=== PATIENT | male | born 1960 | race Caucasian/White ===

== ENCOUNTER → 2017-11-04 14:16 | Outpatient (CLI) | payer MEDICAID, SELFPAY ==
--- NOTE | 2017-11-04 14:20 | XR_ITS ---
EXAM: XR lumbar spine min 4V HISTORY: ITS.REASON: Low back pain ORDERING PHYSICIAN: TAVO Young PATIENT AGE: 57 years COMPARISON: None FINDINGS: Normal alignment. No acute fracture or dislocation. There is severe degenerative disc disease at L5-S1 with mild anterolisthesis of L5 of approximately 5 mm. No lytic or blastic change. IMPRESSION: Severe degenerative disc disease L5-S1
== END ==
PROVIDERS: PCP Physician Assistant; Visit Provider Physician Assistant
DX: M54.5 Low back pain (principal)
CPT/HCPCS: 72110

== ENCOUNTER 2017-12-09 09:30 | Outpatient (RCR) | payer MEDICAID, SELFPAY | END 2017-12-09 14:03 | disposition home or self-care (01) | LOC: PT 09:30 | PROVIDERS: Family Provider Internal Medicine Adolescent Medicine; PCP Physician Assistant; Visit Provider Physician Assistant | DX: M51.16 Intervertebral disc disorders with radiculopathy, lumbar region (principal) | CPT/HCPCS: 97010; 97014; 97110; 97163; G0283 ==

== ENCOUNTER → 2019-01-07 14:15 | Outpatient (CLI) | payer MEDICAID, SELFPAY ==
[2019-01-07 14:35] LABS: Basophils % 0.4 % (0.1-2.0); Eosinophils # 0.1 K/mm3 (0.0-0.4); Eosinophils % 1.4 % (0.1-12.0); Hematocrit 40.8 % (42.0-52.0); Hemoglobin 12.8 g/dL (14.1-18.0); Lymphocytes # 1.8 K/mm3 (0.7-4.5); Lymphocytes % 25.6 % (10-50); Mean Corpuscular HGB Conc 31.3 g/dL (31.8-35.4); Mean Corpuscular Hemoglobin 28.6 pg (27.0-31.2); Mean Corpuscular Volume 91.5 fl (80-94); Mean Platelet Volume 8.9 fl (7.4-10.4); Monocytes # 0.4 K/mm3 (0.1-1.0); Monocytes % 5.6 % (1.7-9.3); Neutrophils # 4.6 K/mm3 (1.8-7.8); Neutrophils % 67.1 % (37.0-80.0); Platelet Count 286 K/mm3 (142-424); Red Blood Count 4.46 M/mm3 (4.60-6.20); Red Cell Distribution Width 13.1 % (11.5-17.5); White Blood Count 6.9 K/mm3 (4.8-10.8)
[2019-01-07 14:57] LABS: Alanine Aminotransferase 27 U/L (12-78); Albumin Level 4.3 gm/dL (3.4-5.0); Albumin/Globulin Ratio 1.7 (1.1-1.8); Alkaline Phosphatase 60 U/L (46-116); Anion Gap 7.3 mEq/L (5-15); Aspartate Amino Transferase 20 U/L (15-37); Bilirubin,Total 0.3 mg/dL (0.2-1.0); Blood Urea Nitrogen 10 mg/dL (7-18); Calcium 9.4 mg/dL (8.5-10.1); Carbon Dioxide 30 mmol/L (21.0-32.0); Chloride 100 mmol/L (98-107); Chol/HDL Ratio 2.4 (1-3.5); Cholesterol 165 mg/dL (140-200); Creatinine,Serum 0.74 mg/dL (0.70-1.30); Estimated Glomerular Filt Rate 109 ml/min (>60); GFR (African American) 131 ML/MIN (>60); Globulin 2.6 gm/dl (1.3-3.2); Glucose 95 mg/dL (74-106); HDL Cholesterol 68 mg/dL (27-67); LDL Cholesterol 83 mg/dL (0-130); Potassium 4.3 mmoL/L (3.5-5.1); Sodium 133 mmol/L (136-145); T4 (Thyroxine) 8.1 ug/dl (4.7-13.3); Thyroid Stimulating Hormone 1.82 uIU/ml (0.358-3.740); Total Protein,Serum 6.9 gm/dL (6.4-8.2); Triglycerides 71 mg/dL (30-200); VLDL Cholesterol 14 mg/dL (0-40)
== END ==
PROVIDERS: Visit Provider Nurse Practitioner Family
DX: R22.43 Localized swelling, mass and lump, lower limb, bilateral (principal)
CPT/HCPCS: 80053; 80061; 84436; 84443; 85025

== ENCOUNTER 2023-12-19 07:00 | Outpatient (RCR) | payer MEDICAID, SELFPAY | END 2024-01-21 07:50 | disposition home or self-care (01) | LOC: PT 07:00 | PROVIDERS: Visit Provider Orthopaedic Surgery Adult Reconstructive Orthopaedic Surgery | DX: M25.571 Pain in right ankle and joints of right foot (principal); S82.841A Displaced bimalleolar fracture of right lower leg, initial encounter for closed fracture | CPT/HCPCS: 97010; 97014; 97110; 97112; 97163; 97164; 97530; G0283 ==